=== PATIENT | male | born 1960 | race African-American/Black ===

== ENCOUNTER 2023-02-28 14:13 | Inpatient (IN) | payer MEDICARE ==
[~2023-02-28 14:13] MED LIST: Iopamidol 370 76% 100 ML VIAL ONE
[2023-02-28] MEDS ORDERED: EPINEPHrine 1 MG/ML VIAL ONE (14:43)
[2023-02-28] MEDS ORDERED: NOREPINEPHRINE 8 MG/250 ML-D5W 250 ML ONE (15:14)
[2023-02-28 15:30] LABS: Actual Bicarbonate (HCO3a) 21.6 mEq/L (22-28); Base Excess (BEa) -6.3 mEq/L (-2.0 to +3.0); CO2 Tension 53.8 mmHg (35.0-45.0); Calcium, Ionized (arterial) 1.09 mmol/L (1.12-1.30); Carboxyhemoglobin (COHb) 0.5 gm% (0.0-3.0); Hematocrit-ABG 34 % (42.0-52.0); Hemoglobin (Hb) 11.6 g/dL (14.0-18.0); O2 Tension (PaO2), arterial 322.4 mmHg (> 80.0); Potassium - ABG Lab 3.51 mmol/L (3.70-5.30); Puncture Site RFA; pH, Arterial 7.222 (7.35-7.45)
[2023-02-28 16:44] LABS: Hematocrit 36.1 % (38.8-50.0); Hemoglobin 11.1 g/dL (13.5-17.5); Mean Corpuscular HGB CONC 30.7 g/dL (32.0-36.0); Mean Corpuscular Hemoglobin 27.7 pg (27.0-33.0); Mean Platelet Volume 12.9 fl (7.4-10.4); Platelet Count 85 10x3/uL (150-450); RBC Distribution Width 15.5 % (11.5-14.5); Red Blood Cell (RBC) Count 4.01 10x6/uL (4.32-5.72); White Blood Cell (WBC) Count 5.7 10x3/uL (3.5-10.5)
[2023-02-28 16:49] LABS: ALT (SGPT) 18 U/L (8-55); AST (SGOT) 31 U/L (5-34); Albumin 2.9 g/dL (3.4-4.8); Alkaline Phosphatase 92 U/L (40-110); Anion Gap 30 mmol/L (10-20); BUN (Urea Nitrogen) 34 mg/dL (8.4-25.7); Bilirubin, Total 0.6 mg/dL (0.2-1.2); Calc. Creatinine Clearance 0 mL/min (70-130); Carbon Dioxide 20 mmol/L (23-31); Chloride 98 mmol/L (98-107); Estimated GFR 5; Globulin 3.9 g/dL (2.4-3.5); Glucose 283 mg/dL (80-115); Potassium 4.3 mmol/L (3.5-5.1); Protein, Total 6.8 g/dL (5.8-8.1); Sodium 144 mmol/L (136-145)
[2023-02-28 16:55] LABS: Troponin I 0.013 ng/mL (< 0.028)
[2023-02-28 17:07] LABS: INR-International Normal Ratio 1.2; PTT 28.8 sec (22.0-33.0); Prothrombin Time 13.1 sec (9.5-12.1)
[2023-02-28 17:09] LABS: #Basophils 0.1 10x3/uL (0.0-0.2); #Eosinphils 0.4 10x3/uL (0.0-0.5); #Monocytes 0.2 10x3/uL (0.0-1.1); #Neutrophils 12.1 10x3/uL (1.5-8.4); %Basophils 0.5 % (0.0-2.0); %Eosinophils 2.5 % (0.0-6.0); %Lymphocytes 8.4 % (18.0-47.0); %Monocytes 1.5 % (0.0-10.0); Hematocrit 34.9 % (38.8-50.0); Hemoglobin 11.1 g/dL (13.5-17.5); Mean Corpuscular HGB CONC 31.8 g/dL (32.0-36.0); Mean Corpuscular Hemoglobin 27.2 pg (27.0-33.0); Mean Corpuscular Volume 85.5 fl (81.2-95.1); Mean Platelet Volume 10.7 fl (7.4-10.4); Platelet Count 137 10x3/uL (150-450); RBC Distribution Width 15.6 % (11.5-14.5); Red Blood Cell (RBC) Count 4.08 10x6/uL (4.32-5.72); White Blood Cell (WBC) Count 14.3 10x3/uL (3.5-10.5)
[2023-02-28 17:13] LABS: MDiff Complete? YES
[2023-02-28 17:15] LABS: Troponin I 0.134 ng/mL (< 0.028)
[2023-02-28 17:18] LABS: ALT (SGPT) 38 U/L (8-55); AST (SGOT) 75 U/L (5-34); Alkaline Phosphatase 110 U/L (40-110); Anion Gap 27 mmol/L (10-20); BUN (Urea Nitrogen) 36 mg/dL (8.4-25.7); Bilirubin, Total 0.8 mg/dL (0.2-1.2); Calc. Creatinine Clearance 0 mL/min (70-130); Calcium 8.3 mg/dL (7.8-10.44); Carbon Dioxide 24 mmol/L (23-31); Chloride 97 mmol/L (98-107); Estimated GFR 5; Globulin 3.9 g/dL (2.4-3.5); Glucose 246 mg/dL (80-115); Potassium 4.5 mmol/L (3.5-5.1); Protein, Total 6.9 g/dL (5.8-8.1); Sodium 143 mmol/L (136-145)
[2023-02-28 17:28] LABS: Band 4 % (5-11); Eosinophils 2 % (0-10); Lymphocytes 63 % (21-51); Metamyelocyte 2 % (0-0); Monocytes 2 % (0-10); Myelocyte 1 % (0-0); Neutrophil 26 % (42-75); Nucleated RBC (Manual Ct) 2 % (0)
[2023-02-28 17:29] LABS: Platelet Adequacy Comment PLT clumps seen-LOW; RBC Morph Comment Within Normal Limits
[2023-02-28 17:31] LABS: Magnesium 2.1 mg/dL (1.6-2.6)
[2023-02-28 17:32] LABS: Phosphorus 9.8 mg/dL (2.3-4.7)
[2023-02-28] MEDS ORDERED: Phenylephrine 40 MG in Sodium Chloride 0.9% 250 ML 250 ML IVPB PRN (18:40)
[2023-02-28] MEDS ORDERED: NOREPINEPHRINE 8 MG/250 ML-D5W 250 ML IVPB PRN (18:40)
[2023-02-28] MEDS ORDERED: Insulin Regular 300 UNITS/3 ML VIAL SC PRN (18:40)
[2023-02-28] MEDS ORDERED: Vasopressin 20 UNITS in Sodium Chloride 0.9% 50 ML IV PRN (18:40)
[2023-02-28] MEDS ORDERED: Sodium Bicarbonate 150 MEQ in Dextrose 5% in Water 1,000 ML IV SCH ×2 (18:45→19:10)
[2023-02-28] MEDS ORDERED: Ventilator Sedation Protocol 1 EACH FS SCH (18:45)
[2023-02-28] MEDS ORDERED: Dextrose 5% in Water 1,000 ML IV PRN (18:48)
[2023-02-28] MEDS ORDERED: Dextrose 50% Abboject 50 ML SYRINGE SLOW IVP PRN (18:48)
[2023-02-28] MEDS ORDERED: Glucagon 1 MG/ML KIT IM PRN (18:48)
[2023-02-28] MEDS ORDERED: Acetaminophen 650 MG/20.3 ML UDCUP PO PRN (18:57)
[2023-02-28] MEDS ORDERED: Morphine 2 MG/ML VIAL SLOW IVP PRN (19:00)
[2023-02-28] MEDS ORDERED: Aspirin 325 MG TAB PER TUBE SCH (19:00)
[2023-02-28] MEDS ORDERED: Propofol BOLUS 1,000 MG/100 ML VIAL IV PRN (19:00)
[2023-02-28] MEDS ORDERED: Piperacillin/Tazobactam 3.375 GM in Sodium Chloride 0.9% 100 ML IVPB SCH (19:00)
[2023-02-28] MEDS ORDERED: FENTANYL 2,000MCG/100-0.9%NACL 100 ML IVPB SCH (19:00)
[2023-02-28] MEDS ORDERED: Lorazepam 2 MG/ML VIAL SLOW IVP PRN (19:00)
[2023-02-28] MEDS ORDERED: DISCONTINUE PREVIOUS NARCOTIC PAIN MEDICATIONS AND BENZODIAZEPINES FS SCH (19:00)
[2023-02-28] MEDS ORDERED: Propofol 1,000 MG/100 ML VIAL IV PRN (19:00)
[2023-02-28] MEDS ORDERED: Fentanyl BOLUS 250 ML IVPB PRN (19:00)
[2023-02-28] MEDS: Ipratropium/Albuterol 3 ML NEB NEB SCH (19:11)
[2023-02-28] MEDS ORDERED: Calcium Carbonate 500 MG ChewTAB PO PRN (19:12)
[2023-02-28] MEDS ORDERED: Acetaminophen 650 MG Suppository PR PRN (19:12)
[2023-02-28 19:56] LABS: Lactic Acid 1.9 mmol/L (0.5-2.2)
[2023-02-28] MEDS: Pantoprazole 40 MG VIAL IVP SCH (20:00)
[2023-02-28] MEDS: Heparin 5,000 UNITS/ML VIAL SC SCH (20:41)
[2023-02-28 22:32] LABS: Anion Gap 22 mmol/L (10-20); BUN (Urea Nitrogen) 41 mg/dL (8.4-25.7); Calc. Creatinine Clearance 11 mL/min (70-130); Calcium 8.5 mg/dL (7.8-10.44); Carbon Dioxide 24 mmol/L (23-31); Chloride 99 mmol/L (98-107); Estimated GFR 5; Glucose 142 mg/dL (80-115); Potassium 3.6 mmol/L (3.5-5.1); Sodium 141 mmol/L (136-145)
[2023-03-01] MEDS ORDERED: Piperacillin/Tazobactam 3.375 GM in Sodium Chloride 0.9% 100 ML IVPB SCH (00:01)
[2023-03-01 00:17] LABS: Actual Bicarbonate (HCO3a) 30.5 mEq/L (22-28); Base Excess (BEa) 5.5 mEq/L (-2.0 to +3.0); Calcium, Ionized (arterial) 1.05 mmol/L (1.12-1.30); Carboxyhemoglobin (COHb) 0.3 gm% (0.0-3.0); Hematocrit-ABG 36 % (42.0-52.0); Hemoglobin (Hb) 12.3 g/dL (14.0-18.0); O2 Tension (PaO2), arterial 59.3 mmHg (> 80.0); Potassium - ABG Lab 3.61 mmol/L (3.70-5.30); Puncture Site LRA; Temperature 23.5 C; pH, Arterial 7.439 (7.35-7.45)
[2023-03-01] MEDS: Ipratropium/Albuterol 3 ML NEB NEB SCH ×5 (01:26→19:07)
[2023-03-01 04:25] LABS: Lactic Acid 1.9 mmol/L (0.5-2.2)
[2023-03-01 04:25] LABS: Actual Bicarbonate (HCO3a) 34.1 mEq/L (22-28); Base Excess (BEa) 10.3 mEq/L (-2.0 to +3.0); CO2 Tension 42.2 mmHg (35.0-45.0); Calcium, Ionized (arterial) 1.01 mmol/L (1.12-1.30); Carboxyhemoglobin (COHb) 0.1 gm% (0.0-3.0); Hematocrit-ABG 34 % (42.0-52.0); Hemoglobin (Hb) 11.6 g/dL (14.0-18.0); O2 Tension (PaO2), arterial 52.2 mmHg (> 80.0); Potassium - ABG Lab 3.07 mmol/L (3.70-5.30); Puncture Site Other Site; Temperature 25.4 C; pH, Arterial 7.525 (7.35-7.45)
[2023-03-01 04:26] LABS: ALT (SGPT) 34 U/L (8-55); AST (SGOT) 76 U/L (5-34); Albumin 2.7 g/dL (3.4-4.8); Alkaline Phosphatase 89 U/L (40-110); Anion Gap 19 mmol/L (10-20); BUN (Urea Nitrogen) 44 mg/dL (8.4-25.7); Calc. Creatinine Clearance 11 mL/min (70-130); Calcium 8.3 mg/dL (7.8-10.44); Carbon Dioxide 29 mmol/L (23-31); Chloride 98 mmol/L (98-107); Estimated GFR 5; Globulin 3.9 g/dL (2.4-3.5); Glucose 128 mg/dL (80-115); Potassium 3.1 mmol/L (3.5-5.1); Protein, Total 6.6 g/dL (5.8-8.1); Sodium 143 mmol/L (136-145)
[2023-03-01 04:29] LABS: #Eosinphils 0.3 10x3/uL (0.0-0.5); #Monocytes 0.4 10x3/uL (0.0-1.1); #Neutrophils 7.1 10x3/uL (1.5-8.4); %Basophils 0.2 % (0.0-2.0); %Lymphocytes 5.9 % (18.0-47.0); %Monocytes 4.9 % (0.0-10.0); %Neutrophils 85.3 % (40.0-75.0); Hematocrit 32.1 % (38.8-50.0); Hemoglobin 10.8 g/dL (13.5-17.5); Mean Corpuscular HGB CONC 33.6 g/dL (32.0-36.0); Mean Corpuscular Hemoglobin 27.8 pg (27.0-33.0); Mean Corpuscular Volume 82.7 fl (81.2-95.1); Mean Platelet Volume 9.4 fl (7.4-10.4); Platelet Count 118 10x3/uL (150-450); RBC Distribution Width 15.5 % (11.5-14.5); Red Blood Cell (RBC) Count 3.88 10x6/uL (4.32-5.72); White Blood Cell (WBC) Count 8.3 10x3/uL (3.5-10.5)
[2023-03-01 04:49] LABS: Platelet Adequacy Comment Appears Decreased; RBC Morph Comment Within Normal Limits
[2023-03-01] MEDS: Heparin 5,000 UNITS/ML VIAL SC SCH (08:35)
[2023-03-01] MEDS: Pantoprazole 40 MG VIAL IVP SCH ×2 (08:36→21:44)
[2023-03-01] MEDS: Piperacillin/Tazobactam 3.375 GM in Sodium Chloride 0.9% 100 ML IVPB SCH ×2 (10:20→21:43)
[2023-03-01] MEDS ORDERED: hydrALAZINE 20 MG/ML VIAL SLOW IVP PRN (11:37)
[2023-03-01] MEDS ORDERED: Amlodipine 5 MG TAB PER TUBE SCH (11:45)
[2023-03-01] MEDS: Amlodipine 5 MG TAB PER TUBE SCH ×2 (21:43→21:45)
[2023-03-02] MEDS: Ipratropium/Albuterol 3 ML NEB NEB SCH ×4 (00:39→18:48)
[2023-03-02 03:23] LABS: #Eosinphils 0.2 10x3/uL (0.0-0.5); #Monocytes 0.2 10x3/uL (0.0-1.1); %Basophils 0.1 % (0.0-2.0); %Eosinophils 2.3 % (0.0-6.0); %Monocytes 2.5 % (0.0-10.0); %Neutrophils 84.8 % (40.0-75.0); Hematocrit 30.6 % (38.8-50.0); Hemoglobin 10.3 g/dL (13.5-17.5); Mean Corpuscular HGB CONC 33.7 g/dL (32.0-36.0); Mean Corpuscular Hemoglobin 27.2 pg (27.0-33.0); Mean Corpuscular Volume 80.7 fl (81.2-95.1); Mean Platelet Volume 10.9 fl (7.4-10.4); Platelet Count 105 10x3/uL (150-450); Red Blood Cell (RBC) Count 3.79 10x6/uL (4.32-5.72); White Blood Cell (WBC) Count 7.1 10x3/uL (3.5-10.5)
[2023-03-02 03:48] LABS: ALT (SGPT) 30 U/L (8-55); AST (SGOT) 50 U/L (5-34); Albumin 2.7 g/dL (3.4-4.8); Alkaline Phosphatase 76 U/L (40-110); Anion Gap 23 mmol/L (10-20); BUN (Urea Nitrogen) 54 mg/dL (8.4-25.7); Bilirubin, Total 1.1 mg/dL (0.2-1.2); Calc. Creatinine Clearance 9 mL/min (70-130); Calcium 8.1 mg/dL (7.8-10.44); Carbon Dioxide 25 mmol/L (23-31); Chloride 97 mmol/L (98-107); Estimated GFR 4; Glucose 135 mg/dL (80-115); Potassium 3.2 mmol/L (3.5-5.1); Protein, Total 6.7 g/dL (5.8-8.1); Sodium 142 mmol/L (136-145)
[2023-03-02] MEDS: Aspirin 81 mg Enteric Coated Tablet PER TUBE SCH (08:04)
[2023-03-02] MEDS: Amlodipine 5 MG TAB PER TUBE SCH ×2 (08:04→20:13)
[2023-03-02] MEDS: Pantoprazole 40 MG VIAL IVP SCH ×2 (08:04→21:15)
[2023-03-02 08:17] LABS: Actual Bicarbonate (HCO3a) 27.8 mEq/L (22-28); Base Excess (BEa) 6.8 mEq/L (-2.0 to +3.0); CO2 Tension 28.2 mmHg (35.0-45.0); Calcium, Ionized (arterial) 0.93 mmol/L (1.12-1.30); Carboxyhemoglobin (COHb) 0.3 gm% (0.0-3.0); Hematocrit-ABG 32 % (42.0-52.0); O2 Tension (PaO2), arterial 47.4 mmHg (> 80.0); Potassium - ABG Lab 3.22 mmol/L (3.70-5.30); Puncture Site Arterial Line; Temperature 25.4 C; pH, Arterial 7.612 (7.35-7.45)
[2023-03-02 09:20] VITALS: BMI 35.3
[2023-03-02] MEDS: Piperacillin/Tazobactam 3.375 GM in Sodium Chloride 0.9% 100 ML IVPB SCH ×2 (13:00→21:15)
[2023-03-03] MEDS: Ipratropium/Albuterol 3 ML NEB NEB SCH ×4 (00:50→19:14)
[2023-03-03] MEDS ORDERED: NOREPINEPHRINE 8 MG/250 ML-D5W 250 ML IVPB SCH (01:45)
[2023-03-03 03:18] LABS: Actual Bicarbonate (HCO3a) 31.3 mEq/L (22-28); Base Excess (BEa) 5.5 mEq/L (-2.0 to +3.0); CO2 Tension 52.1 mmHg (35.0-45.0); Calcium, Ionized (arterial) 0.98 mmol/L (1.12-1.30); Hematocrit-ABG 32 % (42.0-52.0); O2 Tension (PaO2), arterial 50.5 mmHg (> 80.0); Potassium - ABG Lab 3.17 mmol/L (3.70-5.30); Puncture Site Arterial Line; pH, Arterial 7.397 (7.35-7.45)
[2023-03-03 03:36] LABS: #Eosinphils 0.7 10x3/uL (0.0-0.5); #Monocytes 0.5 10x3/uL (0.0-1.1); #Neutrophils 7.1 10x3/uL (1.5-8.4); %Basophils 0.3 % (0.0-2.0); %Eosinophils 6.6 % (0.0-6.0); %Lymphocytes 16.8 % (18.0-47.0); %Monocytes 4.8 % (0.0-10.0); %Neutrophils 70.8 % (40.0-75.0); Hematocrit 32.2 % (38.8-50.0); Hemoglobin 10.3 g/dL (13.5-17.5); Mean Corpuscular Hemoglobin 27.4 pg (27.0-33.0); Mean Corpuscular Volume 85.6 fl (81.2-95.1); Mean Platelet Volume 11.6 fl (7.4-10.4); Platelet Count 122 10x3/uL (150-450); RBC Distribution Width 16.8 % (11.5-14.5); Red Blood Cell (RBC) Count 3.76 10x6/uL (4.32-5.72); White Blood Cell (WBC) Count 10.1 10x3/uL (3.5-10.5)
[2023-03-03 03:45] LABS: ALT (SGPT) 25 U/L (8-55); AST (SGOT) 30 U/L (5-34); Albumin 2.9 g/dL (3.4-4.8); Alkaline Phosphatase 83 U/L (40-110); Anion Gap 19 mmol/L (10-20); BUN (Urea Nitrogen) 33 mg/dL (8.4-25.7); Calc. Creatinine Clearance 12 mL/min (70-130); Calcium 8.2 mg/dL (7.8-10.44); Carbon Dioxide 28 mmol/L (23-31); Chloride 97 mmol/L (98-107); Estimated GFR 6; Globulin 4.4 g/dL (2.4-3.5); Glucose 137 mg/dL (80-115); Potassium 3.2 mmol/L (3.5-5.1); Protein, Total 7.3 g/dL (5.8-8.1); Sodium 141 mmol/L (136-145)
[2023-03-03] MEDS: Amlodipine 5 MG TAB PER TUBE SCH ×2 (09:25→20:46)
[2023-03-03] MEDS: Aspirin 81 mg Enteric Coated Tablet PER TUBE SCH (10:03)
[2023-03-03] MEDS: Pantoprazole 40 MG VIAL IVP SCH ×2 (10:03→21:08)
[2023-03-03] MEDS: Piperacillin/Tazobactam 3.375 GM in Sodium Chloride 0.9% 100 ML IVPB SCH ×2 (10:07→21:08)
[2023-03-03 20:09] VITALS: TEMP 97.2
[2023-03-04] MEDS: Ipratropium/Albuterol 3 ML NEB NEB SCH ×4 (00:39→20:07)
[2023-03-04 03:11] LABS: Actual Bicarbonate (HCO3a) 28.7 mEq/L (22-28); Analyzer IN Cardio CS ICU; Base Excess (BEa) 3.6 mEq/L (-2.0 to +3.0); CO2 Tension 45.8 mmHg (35.0-45.0); Calcium, Ionized (arterial) 0.94 mmol/L (1.12-1.30); Carboxyhemoglobin (COHb) 0.3 gm% (0.0-3.0); Hematocrit-ABG 30 % (42.0-52.0); Hemoglobin (Hb) 10.1 g/dL (14.0-18.0); O2 Tension (PaO2), arterial 77.6 mmHg (> 80.0); Potassium - ABG Lab 3.77 mmol/L (3.70-5.30); Puncture Site Arterial Line; pH, Arterial 7.415 (7.35-7.45)
[2023-03-04] MEDS: Aspirin 81 mg Enteric Coated Tablet PER TUBE SCH (08:31)
[2023-03-04] MEDS: Amlodipine 5 MG TAB PER TUBE SCH ×2 (08:31→21:25)
[2023-03-04] MEDS: Pantoprazole 40 MG VIAL IVP SCH ×2 (08:32→21:41)
[2023-03-04 10:54] LABS: ALT (SGPT) 20 U/L (8-55); AST (SGOT) 23 U/L (5-34); Albumin 2.8 g/dL (3.4-4.8); Alkaline Phosphatase 79 U/L (40-110); Bilirubin, Direct 0.5 mg/dL (0.1-0.3); Bilirubin, Total 0.9 mg/dL (0.2-1.2); Protein, Total 7.4 g/dL (5.8-8.1)
[2023-03-04] MEDS: Piperacillin/Tazobactam 3.375 GM in Sodium Chloride 0.9% 100 ML IVPB SCH (11:11)
[2023-03-04 21:26] VITALS: BP 106/58
== END 2023-03-04 22:05 | disposition expired | DRG 870 ==
LOC: CSHERS 14:13 → CSHIMCU 15:59
PROVIDERS: ADMIT Internal Medicine; ATTEND Hospitalist
PROC: 5A1955Z Respiratory Ventilation, Greater than 96 Consecutive Hours (ICD-10-PCS; principal; 2023-02-28)
PROC: 3E033XZ Introduction of Vasopressor into Peripheral Vein, Percutaneous Approach (ICD-10-PCS; 2023-02-28)
PROC: 0BH17EZ Insertion of Endotracheal Airway into Trachea, Via Natural or Artificial Opening (ICD-10-PCS; 2023-02-28)
PROC: 3E03329 Introduction of Other Anti-infective into Peripheral Vein, Percutaneous Approach (ICD-10-PCS; 2023-02-28)
PROC: 4A133R1 Monitoring of Arterial Saturation, Peripheral, Percutaneous Approach (ICD-10-PCS; 2023-02-28)
PROC: 5A12012 Performance of Cardiac Output, Single, Manual (ICD-10-PCS; 2023-02-28)
PROC: 6A4Z0ZZ Hypothermia, Single (ICD-10-PCS; 2023-03-02)
PROC: 5A1D70Z Performance of Urinary Filtration, Intermittent, Less than 6 Hours Per Day (ICD-10-PCS; 2023-03-02)
DX: A41.9 Sepsis, unspecified organism (principal); G93.6 Cerebral edema; N18.6 End stage renal disease; J69.0 Pneumonitis due to inhalation of food and vomit; Z66 Do not resuscitate; Z51.5 Encounter for palliative care; J96.01 Acute respiratory failure with hypoxia; I46.9 Cardiac arrest, cause unspecified; J18.9 Pneumonia, unspecified organism; R40.20 Unspecified coma; E87.20 Acidosis, unspecified; I12.0 Hypertensive chronic kidney disease with stage 5 chronic kidney disease or end stage renal disease; G93.1 Anoxic brain damage, not elsewhere classified; G93.49 Other encephalopathy; Z99.2 Dependence on renal dialysis; E78.5 Hyperlipidemia, unspecified; E11.22 Type 2 diabetes mellitus with diabetic chronic kidney disease; E03.9 Hypothyroidism, unspecified; Z68.33 Body mass index [BMI] 33.0-33.9, adult; M10.9 Gout, unspecified; D63.1 Anemia in chronic kidney disease; E66.9 Obesity, unspecified; E87.6 Hypokalemia; Z79.890 Hormone replacement therapy; Z79.899 Other long term (current) drug therapy
CPT/HCPCS: 31500; 36415; 36416; 36556; 36600; 70450; 71045; 71275; 78610; 80053; 80076; 82533; 82805; 83605; 83735; 84100; 84484; 85025; 85610; 85730; 87040; 90935; 92950; 93005; 93010; 93306; 94002; 94003; 94640; 94760; A9521; C9113; G0257; J0171; J1644; J2543; J3490; J7070; J7620; Q9967

== ENCOUNTER 2023-03-04 11:40 | Day surgery (SDC) | payer OTHER ==
[2023-03-04 22:48] VITALS: BMI 33.0
[2023-03-05] MEDS ORDERED: Hydrocortisone Sod Succ/PF 100 mg/2 ml Vial IVP SCH ×2 (00:15→09:00)
[2023-03-05 00:28] LABS: Actual Bicarbonate (HCO3a) 28.2 mEq/L (22-28); Analyzer IN Cardio CS ICU; Base Excess (BEa) 3.2 mEq/L (-2.0 to +3.0); CO2 Tension 45.3 mmHg (35.0-45.0); Calcium, Ionized (arterial) 0.86 mmol/L (1.12-1.30); Critical Notified By: CP.PH; Hematocrit-ABG 29 % (42.0-52.0); Hemoglobin (Hb) 9.9 g/dL (14.0-18.0); O2 Tension (PaO2), arterial 82.4 mmHg (> 80.0); Potassium - ABG Lab 3.99 mmol/L (3.70-5.30); Puncture Site Arterial Line; RapidComm Collect By CP.PH; pH, Arterial 7.412 (7.35-7.45)
[2023-03-05 00:48] LABS: ALT (SGPT) 16 U/L (8-55); AST (SGOT) 24 U/L (5-34); Albumin 2.8 g/dL (3.4-4.8); Alkaline Phosphatase 87 U/L (40-110); Anion Gap 22 mmol/L (10-20); BUN (Urea Nitrogen) 62 mg/dL (8.4-25.7); Bilirubin, Direct 0.6 mg/dL (0.1-0.3); Calc. Creatinine Clearance 8 mL/min (70-130); Calcium 7.4 mg/dL (7.8-10.44); Carbon Dioxide 26 mmol/L (23-31); Chloride 96 mmol/L (98-107); Estimated GFR 4; Globulin 4.8 g/dL (2.4-3.5); Glucose 98 mg/dL (80-115); Protein, Total 7.6 g/dL (5.8-8.1); Sodium 140 mmol/L (136-145)
[2023-03-05] MEDS ORDERED: Piperacillin/Tazobactam 3.375 GM in Sodium Chloride 0.9% 100 ML IVPB SCH ×3 (01:00→14:00)
[2023-03-05 02:11] LABS: INR-International Normal Ratio 1.1; PTT 33.4 sec (22.0-33.0); Prothrombin Time 11.9 sec (9.5-12.1)
[2023-03-05 02:18] LABS: #Eosinphils 0.4 10x3/uL (0.0-0.5); #Monocytes 0.4 10x3/uL (0.0-1.1); #Neutrophils 2.8 10x3/uL (1.5-8.4); %Basophils 0.7 % (0.0-2.0); %Eosinophils 8.3 % (0.0-6.0); %Lymphocytes 17.7 % (18.0-47.0); %Monocytes 8.7 % (0.0-10.0); %Neutrophils 63.9 % (40.0-75.0); Hematocrit 40.1 % (38.8-50.0); Hemoglobin 12.8 g/dL (13.5-17.5); Magnesium 2.1 mg/dL (1.6-2.6); Mean Corpuscular HGB CONC 31.9 g/dL (32.0-36.0); Mean Corpuscular Hemoglobin 27.4 pg (27.0-33.0); Mean Corpuscular Volume 85.7 fl (81.2-95.1); Mean Platelet Volume 10.4 fl (7.4-10.4); Phosphorus 8.9 mg/dL (2.3-4.7); Platelet Count 103 10x3/uL (150-450); Red Blood Cell (RBC) Count 4.68 10x6/uL (4.32-5.72); White Blood Cell (WBC) Count 4.4 10x3/uL (3.5-10.5)
[2023-03-05] MEDS: Ipratropium/Albuterol 3 ML NEB NEB SCH ×5 (02:40→18:30)
[2023-03-05 02:41] VITALS: TEMP 98.1
[2023-03-05] MEDS ORDERED: Albumin 25% 25 GM/100 ML BOT IVPB SCH ×2 (02:45→15:30)
[2023-03-05 03:24] LABS: Actual Bicarbonate (HCO3a) 27.4 mEq/L (22-28); Analyzer IN Cardio CS ICU; Base Excess (BEa) 2.5 mEq/L (-2.0 to +3.0); CO2 Tension 44.4 mmHg (35.0-45.0); Calcium, Ionized (arterial) 0.86 mmol/L (1.12-1.30); Critical Notified By: CP.PH; Hematocrit-ABG 29 % (42.0-52.0); Hemoglobin (Hb) 9.8 g/dL (14.0-18.0); O2 Tension (PaO2), arterial 59.7 mmHg (> 80.0); Potassium - ABG Lab 4.33 mmol/L (3.70-5.30); Puncture Site Arterial Line; RapidComm Collect By CP.PH; pH, Arterial 7.409 (7.35-7.45)
[2023-03-05 03:51] LABS: RBC Morph Comment Within Normal Limits
[2023-03-05 03:52] LABS: Platelet Adequacy Comment Appears Decreased
[2023-03-05 05:45] LABS: Actual Bicarbonate (HCO3a) 23.8 mEq/L (22-28); Analyzer IN Cardio CS ICU; Base Excess (BEa) 0.1 mEq/L (-2.0 to +3.0); Calcium, Ionized (arterial) 0.86 mmol/L (1.12-1.30); Carboxyhemoglobin (COHb) 0.3 gm% (0.0-3.0); Critical Notified By: CP.PH; Hematocrit-ABG 29 % (42.0-52.0); O2 Tension (PaO2), arterial 82.1 mmHg (> 80.0); Potassium - ABG Lab 4.51 mmol/L (3.70-5.30); Puncture Site Arterial Line; RapidComm Collect By CP.PH; pH, Arterial 7.451 (7.35-7.45)
[2023-03-05 06:38] LABS: #Eosinphils 0.2 10x3/uL (0.0-0.5); #Monocytes 0.3 10x3/uL (0.0-1.1); #Neutrophils 4.9 10x3/uL (1.5-8.4); %Basophils 0.2 % (0.0-2.0); %Eosinophils 3.2 % (0.0-6.0); %Monocytes 4.2 % (0.0-10.0); %Neutrophils 81.9 % (40.0-75.0); Hematocrit 28.3 % (38.8-50.0); Hemoglobin 8.9 g/dL (13.5-17.5); Mean Corpuscular HGB CONC 31.4 g/dL (32.0-36.0); Mean Corpuscular Volume 85.8 fl (81.2-95.1); Mean Platelet Volume 9.9 fl (7.4-10.4); Platelet Count 108 10x3/uL (150-450); RBC Distribution Width 17.1 % (11.5-14.5); White Blood Cell (WBC) Count 5.9 10x3/uL (3.5-10.5)
[2023-03-05 06:41] LABS: Lactic Acid 0.7 mmol/L (0.5-2.2)
[2023-03-05 06:46] LABS: Magnesium 2.2 mg/dL (1.6-2.6)
[2023-03-05 07:09] LABS: ALT (SGPT) 17 U/L (8-55); AST (SGOT) 24 U/L (5-34); Albumin 3.3 g/dL (3.4-4.8); Alkaline Phosphatase 97 U/L (40-110); Anion Gap 27 mmol/L (10-20); BUN (Urea Nitrogen) 66 mg/dL (8.4-25.7); Bilirubin, Total 1.5 mg/dL (0.2-1.2); Calc. Creatinine Clearance 7 mL/min (70-130); Calcium 7.7 mg/dL (7.8-10.44); Carbon Dioxide 22 mmol/L (23-31); Chloride 96 mmol/L (98-107); Estimated GFR 3; Globulin 4.8 g/dL (2.4-3.5); Glucose 148 mg/dL (80-115); Potassium 4.6 mmol/L (3.5-5.1); Protein, Total 8.1 g/dL (5.8-8.1); Sodium 140 mmol/L (136-145)
[2023-03-05 07:27] LABS: Phosphorus 9.7 mg/dL (2.3-4.7)
[2023-03-05 07:31] LABS: INR-International Normal Ratio 1.1; PTT 33.6 sec (22.0-33.0); Prothrombin Time 12.1 sec (9.5-12.1)
[2023-03-05 09:12] LABS: Actual Bicarbonate (HCO3a) 23.2 mEq/L (22-28); Analyzer IN Cardio CS ICU; Base Excess (BEa) -0.6 mEq/L (-2.0 to +3.0); Calcium, Ionized (arterial) 0.85 mmol/L (1.12-1.30); Carboxyhemoglobin (COHb) 0.3 gm% (0.0-3.0); Hematocrit-ABG 27 % (42.0-52.0); Hemoglobin (Hb) 9.3 g/dL (14.0-18.0); O2 Tension (PaO2), arterial 107.6 mmHg (> 80.0); Potassium - ABG Lab 4.67 mmol/L (3.70-5.30); Puncture Site Arterial Line
[2023-03-05 13:24] LABS: Hemoglobin A1c 5.7 % (4.0-6.0)
[2023-03-05 17:21] VITALS: BP 87/53
== END 2023-03-05 19:36 | disposition expired ==
LOC: CJX 11:40 → CSHIMCU 11:40 → CJX 03-05 19:36
PROVIDERS: ATTEND Radiology Vascular & Interventional Radiology
DX: I12.0 Hypertensive chronic kidney disease with stage 5 chronic kidney disease or end stage renal disease (principal); N18.6 End stage renal disease; Z99.2 Dependence on renal dialysis; D63.1 Anemia in chronic kidney disease; K74.60 Unspecified cirrhosis of liver; J90 Pleural effusion, not elsewhere classified
CPT/HCPCS: 36416; 71045; 71250; 74177; 80053; 82248; 82805; 83036; 83605; 83735; 84100; 85025; 85610; 85730; 87205; 90935; 94003; 94640; 94762; G0257; J1720; J2543; J3490; J7620; P9047